=== PATIENT | female | born 1980 | race Caucasian/White ===

== ENCOUNTER 2020-10-24 19:26 | Emergency (ER) | payer OTHER, SELFPAY ==
[2020-10-24 19:27] VITALS: BP 82/69; PULSE 202; RESP 18; TEMP 36.2; O2SAT 99; BMI 36.4
--- NOTE | 2020-10-24 19:30 | ED.RN ---
CALLED FOR EKG PER RN REQUEST, PULLED OLD EKGS FOR
--- NOTE | 2020-10-24 19:31 | EKG12_ITS ---
Test Reason : CP Blood Pressure : / mmHG Vent. Rate : 201 BPM Atrial Rate : 202 BPM P-R Int : 000 ms QRS Dur : 076 ms QT Int : 226 ms P-R-T Axes : 000 065 -72 degrees QTc Int : 413 ms Supraventricular tachycardia Nonspecific T wave abnormality Abnormal ECG Confirmed by FRANC GARCIA, KELLEY ([id number]), magazine editor ROBYN SHOOK ([id number]) on 10/26/2020 11:36:51 AM Referred By: MUNIRA Confirmed By:KELLEY BRUNER MD
[2020-10-24 19:32] VITALS: PULSE 202; O2SAT 99
[2020-10-24] MEDS: Adenosine 6 MG/2 ML Syringe IV (19:38)
[2020-10-24 19:41] VITALS: BP 122/80; PULSE 75; RESP 18; O2SAT 99
--- NOTE | 2020-10-24 19:41 | ED.VIS.GEN ---
History of Present Illness Chief Complaint: Chest Pain Informant: Patient Onset: Today Maximum Severity: Mild Narrative: The patient presents with rapid heart rate that began today, she has history of rapid heart rate she believes is A. fib she has been seen by cardiology Dr. Jameson Lockhart, she had cardiac echo and stress test that were unremarkable, she was supposed be taking metoprolol 25 mg a day but she stopped taking that sometime ago, she has had no fever no cough no chest pain no numbness 6 paresthesias just the rapid heart rate, she has no history of thyroid disorder. She is other complaints Past Medical History - Allergies and Home Meds Allergies/Adverse Reactions: Allergies No Known Allergies Allergy (Verified 10/24/20 19:31) Past Medical History: - Smoking Status: Current every day smoker Review of Systems ROS: - But heart rate possibly SVT or A. fib General: Denies: Chills, Fever, Sweats Eyes: Denies: Visual changes - bilaterally, Diplopia ENT: Denies: Rhinorrhea, Sore throat Cardiovascular: Reports: Palpitations. Denies: Chest pain Respiratory: Denies: Dyspnea, Cough, Dyspnea on exertion Gastrointestinal: Denies: Abdominal pain, Nausea, Vomiting, Diarrhea, Melena, Hematochezia Genitourinary: Denies: Dysuria, Hematuria, Frequency Musculoskeletal: Denies: Back pain, Extremity Pain Skin: Denies: Rash, Wounds Neurological: Denies: Headache, Weakness, Numbness Physical Exam Vital Signs/Narrative: Vital Signs Temp Pulse Resp BP Pulse Ox 10/24/20 19:32 202 H 99 10/24/20 19:27 97.1 F L 202 H 18 82/69 L 99 General: Well nourished, Well developed, No Acute Distress Head: Normocephalic, Atraumatic Eyes: Perrl, EOMI ENT: Moist mucous membranes, No rhinorrhea Neck: Supple, Nontender Cardiovascular: Regular rate, Regular rhythm, No murmurs, Tachycardia, - - Rate on the monitor is narrow complex 200 EKG Respiratory: No distress, CTA bilaterally, Chest nontender Abdomen: Soft, Nontender, Nondistended, Normal bowel sounds Back: Nontender, Normal Inspection Extremities: Nontender, No edema Skin: Normal color, No rash Neurological: Alert, Oriented x3, Cranial nerves II-XII grossly intact, Normal Strength, Normal Sensation Psychological: Normal affect, Normal Mood
[2020-10-24] MEDS: Aspirin 81 MG TAB.CHEW 324 MG PO (19:44)
--- NOTE | 2020-10-24 19:49 | RAD_ITS ---
STUDY: X-RAY CHEST REASON FOR EXAM: Female, 40 years old. Chest pain TECHNIQUE: Frontal view of the chest COMPARISON: X-ray chest 02/08/2013 FINDINGS: The lungs are clear. There are no pleural effusions. There is no pneumothorax. The heart is normal in size. The visualized osseous structures are within normal limits. RAD/Chest 1 View (Portable) IMPRESSION: No acute thoracic pathology. Electronically Signed: Brando Dickey MD at 20:12 EDT Tel , Service support ,
[2020-10-24 19:55] LABS: Absolute Lymphocyte Count 5.12 X10^3/uL (0.83-4.51); Absolute Neutrophil Count 11.2 X10^3/uL (2.0-7.7); Basophil# 0.15 X10^3/uL; Basophil% 0.8 % (0-1); Eosinophil# 0.52 X10^3/uL; Eosinophils% 2.9 % (0-5); Hematocrit 47.1 % (37-47); Hemoglobin 15.6 g/dL (12.0-15.0); Lymphocyte # 5.12 X10^3/ul (0.83-4.51); Lymphocyte % 28.2 % (19-41); Mean Corp Hgb Conc 33.1 g/dL (32-36); Mean Corpuscular Hgb 28.6 pg (27.0-32.0); Mean Corpuscular Volume 86.3 fL (81-99); Mean Platelet Vol. 10.9 fl (6.2-12.0); Monocyte# 1.02 X10^3/uL; Monocyte% 5.6 % (0-10); NRBC Flagged by Analyzer 0 % (0-5); Neutrophil # 11.22 X10^3/uL (2.7-7.7); Neutrophil % 61.9 % (47-70); POSITIVE DIFFERENTIAL YES; Platelet Count 387 K/mm3 (150-450); RBC Distribution Width CV 12.5 % (11.6-14.6); RBC Distribution Width SD 39.4 fl (35.1-43.9); Red Blood Count 5.46 M/mm3 (4.2-5.4); White Blood Count 18.1 K/mm3 (4.4-11.0)
[2020-10-24 19:57] LABS: Differential Indicated SCAN CRITERIA MET
[2020-10-24 20:17] LABS: Differential Comment SCANNED
[2020-10-24 20:41] LABS: Anion Gap 4 (5-15); BUN 13 mg/dL (7-18); BUN/Creat Ratio 17.5 RATIO (10-20); Calcium,Total 8.7 mg/dL (8.5-10.1); Chloride 108 mmol/L (98-107); Creatinine, Serum 0.74 mg/dL (0.55-1.02); EST Glomerular Filtration Rate 91 mL/min (>60); Est Glom Filt Rate - Afr Amer 110 mL/min (>60); Glucose 182 mg/dL (74-106); Potassium 3.8 mmol/L (3.5-5.1); Sodium Level 138 mmol/L (136-145)
--- NOTE | 2020-10-24 21:17 | ED.DEP ---
ED Disposition - Plan for ED Patient: Diagnosis: Atrial fibrillation, SVT Instructions: ED About Arrhythmias Prescriptions: Metoprolol Succinate 25 mg PO DAILY #14 tab.er.[id number] Prescription Printed Referrals: Dhruv Barba DO [Primary Care Provider] -
[2020-10-24 21:19] VITALS: BP 103/66; PULSE 62; RESP 17; O2SAT 100
--- NOTE | 2020-10-24 21:20 | EKG12_ITS ---
Test Reason : REPEAT CP Blood Pressure : / mmHG Vent. Rate : 063 BPM Atrial Rate : 063 BPM P-R Int : 142 ms QRS Dur : 084 ms QT Int : 398 ms P-R-T Axes : 044 045 022 degrees QTc Int : 407 ms Normal sinus rhythm Normal ECG Confirmed by FRANC GARCIA, KELLEY ([id number]), loan expeditor ROBYN SHOOK ([id number]) on 10/26/2020 11:37:05 AM Referred By: IRENE Confirmed By:KELLEY BRUNER MD
[2020-10-24] MEDS: Metoprolol(XL)Succ 25 MG Tablet PO (21:29)
== END 2020-10-24 21:30 | disposition home or self-care (01) ==
LOC: ED 20:22
PROVIDERS: Emergency Provider Emergency Medicine; PCP Student in an Organized Health Care Education/Training Program
DX: R07.9 Chest pain, unspecified (principal); R77.8 Other specified abnormalities of plasma proteins; F17.200 Nicotine dependence, unspecified, uncomplicated
CPT/HCPCS: 71045; 80048; 84484; 85025; 93005; 99285; J7030; A4216; J0153

== ENCOUNTER 2022-07-21 19:38 | Emergency (ER) | payer OTHER, SELFPAY ==
[2022-07-21 19:39] VITALS: BP 148/91; PULSE 81; RESP 18; TEMP 36.8; O2SAT 94; BMI 32.5
[2022-07-21 21:50] VITALS: BP 113/88; PULSE 75; PULSE 88; RESP 22; TEMP 36.8; O2SAT 94; O2SAT 95
[2022-07-21] MEDS: Albuterol Sulfate 8 gm Inhaler (60 puffs) 2 PUFF INHALATION (22:05)
--- NOTE | 2022-07-21 22:08 | RAD_ITS ---
EXAM: XR CHEST, 1 VIEW CLINICAL INDICATION: SOB, cough TECHNIQUE: Frontal view of the chest. This report was created using [employer] report generation technology. COMPARISON: October 24, 2020 FINDINGS: LUNGS AND PLEURAL SPACES: Unremarkable. No consolidation or edema. No pneumothorax. No effusion. HEART: Unremarkable. Cardiac silhouette not enlarged. MEDIASTINUM: Central airways and mediastinal contour are unremarkable. BONES/JOINTS: Degenerative changes of the spine. SOFT TISSUES: Unremarkable. RAD/Chest 1 View (Portable) IMPRESSION: No acute disease. Electronically Signed: Kirill Morley MD at 22:48 EST ,
--- NOTE | 2022-07-21 22:11 | ED.VIS.DYS ---
HPI <ZABRINA Bethea - Last Filed: 07/21/22 23:00> History of Present Illness Chief Complaint: Shortness of Breath Narrative Narrative: Patient presents with a dry cough that she has had since Thursday. She states she does have some shortness of breath on exertion but not at rest. Patient also states she does have some midsternal chest pain that radiates to the back with coughing but not at rest. She is also complaining of nasal congestion and states the whole family was sick with similar symptoms recently. Patient denies any lung conditions but states that she does have atrial fibrillation and diabetes mellitus. Patient is a smoker. She denies fever, sore throat, abdominal pain, nausea, vomiting, diarrhea. PFSH <ZABRINA Bethea - Last Filed: 07/21/22 23:00> [facility] Medical History Atrial fibrillation Diabetes Hypertension Home Medications metoprolol succinate 25 mg tablet,extended release 24 hr 25 mg PO DAILY ##14 10/24/20 [Rx Last Taken Unknown] aspirin 81 mg chewable tablet 81 mg PO DAILY 07/21/22 [History Last Taken Unknown] escitalopram oxalate 20 mg tablet 20 mg PO DAILY 07/21/22 [History Last Taken Unknown] metformin 500 mg tablet,extended release 24 hr 1,000 mg PO BID 07/21/22 [History Last Taken Unknown] rosuvastatin 20 mg tablet 20 mg PO QHS 07/21/22 [History Last Taken Unknown] Allergy/AdvReac Type Severity Reaction Status Date / Time No Known Allergies Allergy Verified 10/24/20 19:31 Social History Smoking Status: Current every day smoker tobacco type: cigarettes ROS <ZABRINA Bethea - Last Filed: 07/21/22 23:00> ROS ED Constitutional Constitutional ED: Denies chills, fever(s) or sweats Eyes Eyes: Denies blurry vision or change in vision ENT ENT ED: Reports rhinorrhea; Denies sore throat Cardiovascular Cardiovascular: Denies chest pain or palpitations Respiratory/Chest Respiratory/Chest: Reports cough and dyspnea on exertion Gastrointestinal Gastrointestinal: Denies abdominal pain, nausea or vomiting Genitourinary Genitourinary ED: Denies dysuria, hematuria or urinary frequency Musculoskeletal Musculoskeletal: Denies arthralgias or myalgias Integumentary Denies abscess, Abrasions or rash Neurologic Neurologic: Denies headache(s), paresthesias or weakness Psychiatric Psychiatric: Denies anxiety, depression or suicidal ideation EXAM <ZABRINA Bethea - Last Filed: 07/21/22 23:00> Physical Exam Const Vital Signs: 07/21/22 19:39 07/21/22 21:50 07/21/22 21:50 Temperature 98.2 F 98.2 F Temperature Source Temporal Oral Pulse Rate 81 75 88 Respiratory Rate 18 22 H 22 H Respiratory Effort Respiratory Depth Blood Pressure 148/91 H 113/88 H 113/88 H Blood Pressure Mean 110 96 96 Pulse Ox 94 94 95 Oxygen Delivery Method Room Air Room Air Room Air 07/21/22 21:50 07/21/22 22:58 Temperature Temperature Source Pulse Rate 89 Respiratory Rate 19 H Respiratory Effort Short of Breath Respiratory Depth Deep Blood Pressure 145/89 H Blood Pressure Mean Pulse Ox 95 Oxygen Delivery Method Room Air Positive well nourished and well developed General Appearance ED: well developed and NAD HEENT Reports TM's clear and moist mucous membranes atraumatic Tympanic Membrane ED: Yes TM's clear Eyes PERRL and EOMs intact bilaterally Neck no lymphadenopathy and supple Resp normal respiratory effort Resp Narrative: Expiratory wheezes throughout lung solorio. Cardio regular rate, regular rhythm and no murmurs GI non-tender, non-distended and no masses Palpation: soft Back/Spine normal to inspection Extremity normal to inspection Neuro oriented x3, CN's II-XII intact bilaterally and no sensory deficits noted Sensorium / Orientation: alert Speech: speech normal Gait (Neuro): normal gait Motor Exam: strength 5/5 throughout Psych mental status grossly normal Skin no wounds and skin turgor normal <Dr. Francis Polanco DO - Last Filed: 07/21/22 23:47> Physical Exam Const Vital Signs: 07/21/22 19:39 07/21/22 21:50 07/21/22 21:50 Temperature 98.2 F 98.2 F Temperature Source Temporal Oral Pulse Rate 81 75 88 Respiratory Rate 18 22 H 22 H Respiratory Effort Respiratory Depth Blood Pressure 148/91 H 113/88 H 113/88 H Blood Pressure Mean 110 96 96 Pulse Ox 94 94 95 Oxygen Delivery Method Room Air Room Air Room Air 07/21/22 21:50 07/21/22 22:58 Temperature Temperature Source Pulse Rate 89 Respiratory Rate 19 H Respiratory Effort Short of Breath Respiratory Depth Deep Blood Pressure 145/89 H Blood Pressure Mean Pulse Ox 95 Oxygen Delivery Method Room Air [facility] <ZABRINA Bethea - Last Filed: 07/21/22 23:00> [facility] Narrative Medical decision making narrative: Patient presents with nasal congestion and a cough that she has had since Thursday. Flu and COVID swabs obtained and are both negative. Chest x-ray obtained and is negative for any acute disease. Patient was given an albuterol inhaler due to some scattered expiratory wheezing in her lung solorio bilaterally. She states this greatly improved her symptoms. She would like to go home. Vital signs are stable and O2 sat has remained above 94%. She is afebrile. I am comfortable with patient discharging home in stable condition and patient is comfortable with plan. She has been given return instructions. She has been given an albuterol inhaler to go home with. It is likely that this is a viral URI. Differentials I have considered include: 1. Covid 2. Influenza 3. Viral URI 4. Pneumonia Radiography Diagnostic Testing: Clinical Impression(s) from Imaging Studies Chest X-Ray 07/21/22 22:08 IMPRESSION: No acute disease. Electronically Signed: Kirill Morley MD at 22:48 EST , Chest x-ray also reviewed by attending ED physician. <Dr. Francis Polanco DO - Last Filed: 07/21/22 23:47> [facility] Narrative Medical decision making narrative: Patient presents with nasal congestion and a cough that she has had since Thursday. Flu and COVID swabs obtained and are both negative. Chest x-ray obtained and is negative for any acute disease. Patient was given an albuterol inhaler due to some scattered expiratory wheezing in her lung solorio bilaterally. She states this greatly improved her symptoms. She would like to go home. Vital signs are stable and O2 sat has remained above 94%. She is afebrile. I am comfortable with patient discharging home in stable condition and patient is comfortable with plan. She has been given return instructions. She has been given an albuterol inhaler to go home with. It is likely that this is a viral URI. Differentials I have considered include: 1. Covid 2. Influenza 3. Viral URI 4. 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 I perform my own [id number] evaluation. I agree with the plan of work-up. 2 days dry cough. With coughing pain in the back and abdomen. No vomiting or diarrhea. Reports myalgias. Denies fevers. Works in healthcare with sick contacts. Recent patient with COVID. Patient had asymptomatic COVID infection in the past. Denies asthma or COPD. Denies tobacco. Was wheezing on initial exam, on my evaluation very minimal extra wheezing left side status post albuterol. Differentials COVID influenza URI versus pneumonia. No chest pains returns for acute coronary syndrome. Chest x-ray interpreted myself read by radiology shows no acute process. COVID and influenza rapid test negative. Reassured inhaler use as needed. Adjunct therapies for cough. Outpatient follow-up. All questions were answered. Radiography Diagnostic Testing: Clinical Impression(s) from Imaging Studies Chest X-Ray 07/21/22 22:08 IMPRESSION: No acute disease. Electronically Signed: Kirill Morley MD at 22:48 EST , Discharge Plan Triage Chief Complaint: Shortness of Breath ED Midlevel Provider: Marilou Bello ED Provider: Francis Polanco Dx/Rx/DC Orders Clinical Impression: Viral URI with cough Instructions: ED URI, Viral, No Abx (Adult) Prescriptions: No Action metoprolol succinate 25 MG tablet extended release 24 hr 25 mg PO DAILY Qty: 14 0RF aspirin [Baby Aspirin] 81 mg Tablet,Chewable 81 mg PO DAILY metformin 500 mg tablet extended release 24 hr 1,000 mg PO BID Label Comments: TAKE 2 TABLETS BY MOUTH TWICE DAILY escitalopram oxalate 20 mg tablet 20 mg PO DAILY Label Comments: TAKE 1 TABLET BY MOUTH ONCE DAILY rosuvastatin 20 mg tablet 20 mg PO QHS Label Comments: TAKE 1 TABLET BY MOUTH EVERY DAY AT BEDTIME FOR 90 DAYS Primary Care Provider: Dhruv Barba Referrals: Dhruv Barba, [Primary Care Provider] - 3-5 Days Activity Restrictions/Additional Instructions: You can take 1 to 2 puffs of the inhaler every 4 hours as needed. Please return for any worsening of symptoms. Please follow-up with PCP. Disposition Disposition: Home, Self Care Discharge Date/Time: 07/21/22 22:59
[2022-07-21 22:58] VITALS: BP 145/89; PULSE 89; RESP 19; O2SAT 95
== END 2022-07-21 22:59 | disposition home or self-care (01) ==
PROVIDERS: Emergency Provider Emergency Medicine; PCP Student in an Organized Health Care Education/Training Program; Visit Provider Emergency Medicine
DX: J06.9 Acute upper respiratory infection, unspecified (principal); I48.91 Unspecified atrial fibrillation; E11.9 Type 2 diabetes mellitus without complications; Z20.822 Contact with and (suspected) exposure to COVID-19; F17.210 Nicotine dependence, cigarettes, uncomplicated; I10 Essential (primary) hypertension; Z79.899 Other long term (current) drug therapy; Z79.82 Long term (current) use of aspirin; Z79.84 Long term (current) use of oral hypoglycemic drugs
CPT/HCPCS: 71045; 87428; 99282